=== PATIENT | female | born 1975 | race Asian ===

== ENCOUNTER 2020-10-16 15:18 | Emergency (ER) | payer BC ==
[~2020-10-16] VITALS: Ht 165.1 cm; Wt 87.0 kg
[2020-10-16 15:19] VITALS: BP 131/88
[2020-10-16] MEDS ORDERED: METHOCARBAMOL 500MG TABLET PO ONE (15:30)
[2020-10-16] MEDS ORDERED: TRAM50TA3 MT ×2 (16:41→17:00)
[2020-10-16] MEDS ORDERED: METH-773 MT ×2 (16:41→17:00)
== END 2020-10-16 16:55 | disposition home or self-care (01) ==
LOC: ER 15:18
DX: S13.4XXA Sprain of ligaments of cervical spine, initial encounter (principal); M32.9 Systemic lupus erythematosus, unspecified; V43.52XA Car driver injured in collision with other type car in traffic accident, initial encounter; Y93.89 Activity, other specified; Y92.488 Other paved roadways as the place of occurrence of the external cause; Y99.8 Other external cause status
CPT/HCPCS: 99284